=== PATIENT | male | born 1950 | race Caucasian/White ===

== ENCOUNTER 2020-09-20 08:45 | Emergency (ER) | payer MEDICARE ==
[2020-09-20 08:54] VITALS: RESP 18; TEMP 98.3
--- NOTE | 2020-09-20 09:18 | ED ---
General Adult HPI - General Chief complaint: Urogenital Stated complaint: trouble urinating, hematuria Time Seen by Provider: 09/20/20 09:09 Source: patient, RN notes reviewed Mode of arrival: ambulatory Limitations: no limitations - History of Present Illness Initial comments: Patient is a 70-year-old male presented to the emergency room today with a chief complaint of urinary retention. Patient does admit that around 5:30 AM this morning. He states somebody was for small amounts. Patient states that still feeling some discomfort in lower abdomen that he needs to go but is been unable to. He denies any other complaints or symptoms. He does admit to a history of enlarged prostate. Patient denies any recent fever, chills, shortness of breath, chest pain, back pain, vomiting, headaches or visual changes, or any other complaints. - Related Data Previous Rx's Medication Instructions Recorded Phenazopyridine [Pyridium] 100 mg PO TID 3 Days day 09/20/20 Allergies Allergy/AdvReac Type Severity Reaction Status Date / Time No Known Allergies Allergy Verified 09/20/20 08:54 Review of Systems ROS Statement: Those systems with pertinent positive or pertinent negative responses have been documented in the HPI. ROS Other: All systems not noted in ROS Statement are negative. Past Medical History Past Medical History: Hypertension History of Any Multi-Drug Resistant Organisms: None Reported Additional Past Surgical History / Comment(s): cataracts Past Psychological History: No Psychological Hx Reported Smoking Status: Never smoker Past Alcohol Use History: None Reported Past Drug Use History: None Reported General Exam - General Exam Comments Initial Comments: General: The patient is awake and alert, in no distress, and does not appear acutely ill. Eye: There is normal conjunctiva bilaterally. No signs of icterus. Ears, nose, mouth and throat: There are moist mucous membranes and no oral lesions. Neck: The neck is supple Respiratory: respirations are non-labored, breath sounds are equal. Gastrointestinal: Soft on palpation. Musculoskeletal: Normal ROM, no tenderness. . Neurological: A&O x 3. CN II-XII intact, There are no obvious motor or sensory deficits. Coordination appears grossly intact. Speech is normal. Skin: Skin is warm and dry and no rashes or lesions are noted. Psychiatric: Cooperative, appropriate mood & affect, normal judgment. Limitations: no limitations Course Vital Signs 09/20/20 09/20/20 09/20/20 08:51 11:24 12:46 Temperature 98.3 F Pulse Rate 74 89 90 Respiratory 18 18 18 Rate Blood Pressure 188/100 166/108 169/108 O2 Sat by Pulse 98 96 95 Oximetry Medical Decision Making - Medical Decision Making Patient came in with urinary retention. He did have bladder scan which showed 500 mL. Patient did have Mckinnon catheter was placed by nursing staff. He did have some hematuria and some clots that were irrigated. A Mckinnon catheter has been draining well. Patient's pain is improved. Was discussed with patient about further evaluation with imaging he has declined. He states he plans to follow with his urologist. Patient will be given a prescription for Pyridium for spasms. Advised to return if any symptoms increase or worsen he states understanding and is agreement. - Lab Data Lab Results 09/20/20 Range/Units 09:01 Urine Color Red Urine Appearance Bloody (Clear) Urine RBC >182 H (0-5) /hpf Urine WBC 2 (0-5) /hpf Disposition Clinical Impression: Urinary retention Disposition: HOME SELF-CARE Condition: Good Instructions (If sedation given, give patient instructions): Urinary Retention in Men (ED) Additional Instructions: Please leave Mckinnon catheter in place and follow-up the family says physician/urologist over the next 2 days. Return here to emergency room if any symptoms increase or worsen or for any other concerns. Prescriptions: Phenazopyridine [Pyridium] 100 mg PO TID 3 Days day Is patient prescribed a controlled substance at d/c from ED?: No Referrals: None,Stated [REFERRING] - 1-2 days Time of Disposition: 13:33
[2020-09-20 09:25] LABS: Appearance,Urine Bloody (Clear)
[2020-09-20 09:26] LABS: Color,Urine Red
[2020-09-20 09:40] LABS: RBC,Urine >182 /hpf (0-5); WBC,Urine 2 /hpf (0-5)
[2020-09-20] MEDS ORDERED: LIDOCAINE URO-JET JELLY 2% 5 ML KIT URETHRAL ONE (10:00)
[2020-09-20] MEDS ORDERED: MORPHINE SULFATE 4 MG/ML SYRINGE IV STA (11:19)
[2020-09-20 13:46] VITALS: BP 169/96; PULSE 97
== END 2020-09-20 14:18 | disposition home or self-care (01) ==
LOC: EC 08:45
DX: N40.1 Benign prostatic hyperplasia with lower urinary tract symptoms (principal); R33.8 Other retention of urine; R31.9 Hematuria, unspecified
CPT/HCPCS: 51798; 81001; 99284; 96374; 51702; J2270